=== PATIENT | male | born 1975 | race Caucasian/White ===

== ENCOUNTER 2023-09-27 01:08 | Emergency (ER) | payer BC, SELFPAY ==
[2023-09-27 01:17] VITALS: BP 167/115; BMI 30.8
--- NOTE | 2023-09-27 01:23 | ED.GENMED ---
History of Present Illness
<FADY Garcia - Last Filed: 09/27/23 05:31>
General
Chief Complaint: Abdominal Pain
Time Seen by Provider: 09/27/23 01:20
Travel History
Have you had any contact with someone who has COVID-19?: No
Do you have any symptoms of coronavirus? Fever > 100 degrees, chills, cough, shortness of breath, sore throat, loss of taste or smell, muscle aches, or headache?: No
History of Present Illness
History of Present Illness:
This is a 48 yo male with no significant PMH presenting for abdominal pain x 3 days. He states this pain started at work and had a gradual onset. He describes this as a crampy abdominal pain in the RUQ which sometimes radiates to his lumbar region.
He states the pain is worse at night and rates it as 8/10 in severity. This is associated with night sweats and nausea which is worse at night. He came to the ER today because he woke up with severe nausea and sweating along with his abdominal pain.
His last BM was yesterday and he denies diarrhea and constipation.
He denies recent trauma
He states appendicitis in 2008.
<Rogerio Arnold MD - Last Filed: 09/27/23 22:16>
General
Source: patient and spouse
Exam Limitations: none
Nursing documentation reviewed up to this point in time: agreed with
Past History
<FADY Garcia - Last Filed: 09/27/23 05:31>
Past History
ED Past Medical History: Other (Seasonal allergies)
Social History
Tobacco: Non-smoker
Alcohol: Occasional
Family History
Family History: Negative Diabetes, Hypertension or CAD
Review of Systems
<FADY Garcia - Last Filed: 09/27/23 05:31>
Review of Systems
Allergies reviewed?: Yes
Constitutional: Reports night sweats
Respiratory: Reports no symptoms
Cardiac: Reports no symptoms
ABD/GI: Reports nausea, pain and other (retching)
: Reports no symptoms
Phy Exam
<FADY Garcia - Last Filed: 09/27/23 05:31>
General Physical Exam
General Presentation: mild distress
General age: appears stated age
General Skin: warm
General Habitus: normal
General Mental: alert
General Hydration: appears well hydrated
Cardiovascular Exam
Cardiovascular Exam: regular rate/rhythm
Pulmonary Exam
Pulmonary Exam: lungs clear
Gastrointestinal Exam
Gastrointestinal Exam: normal bowel sounds, non tender, soft and non distended
Palpation: generalized: No tenderness
Course
<ST RadhaMO - Last Filed: 09/27/23 05:31>
Orders/Labs/Results
Orders:
Orders
09/27/23 01:56
CMP [Comprehensive Metabolic Panel] Urgent
Complete Blood Count/With Diff Urgent
Lipase Urgent
Comment: ADD ON
09/27/23 02:41
US Abdomen Complete/Upper Urgent
Comment:
Reason For Exam: abdominal pain
09/27/23 02:51
Urinalysis Reflex To Culture Urgent
Date Specimen was Collected: 09/27/23
Time Specimen was Collected: 02:49
Urine Microscopic Reflex Cult Urgent
09/27/23 02:53
HYDROmorphone [Dilaudid] 0.5 mg .ROUTE .STK-MED ONE
09/27/23 03:00
0.9% Sodium Chloride 1000 ml [Nss] 1,000 ml IV BOLUS
09/27/23 03:01
HYDROmorphone [Dilaudid] 0.5 mg IV NOW STA
Abnormal Lab Results
09/27/23 09/27/23
01:56 02:51
Lymphocytes % 17.6 L %
(20.5-51.1)
Glucose 123 H mg/dl
(70-99)
Leukocyte Esterase Rfl Trace A
(Negative)
Urine Bacteria (Reflex) Few A
(Negative)
09/27/23 01:56
09/27/23 01:56
Vital Signs
Initial and Last Documented VS:
Initial Vital Signs
Temp Pulse Resp BP Pulse Ox
98.1 F 66 16 167/115 99
09/27/23 01:17 09/27/23 01:17 09/27/23 01:17 09/27/23 01:17 09/27/23 01:17
Last Documented Vital Signs
Temp Pulse Resp BP Pulse Ox
97.2 F 64 16 150/91 98
09/27/23 05:21 09/27/23 05:21 09/27/23 05:21 09/27/23 05:21 09/27/23 05:21
<Rogerio Arnold MD - Last Filed: 09/27/23 22:16>
Orders/Labs/Results
Orders:
Orders
09/27/23 01:56
CMP [Comprehensive Metabolic Panel] Urgent
Complete Blood Count/With Diff Urgent
Lipase Urgent
Comment: ADD ON
09/27/23 02:41
US Abdomen Complete/Upper Urgent
Comment:
Reason For Exam: abdominal pain
09/27/23 02:51
Urinalysis Reflex To Culture Urgent
Date Specimen was Collected: 09/27/23
Time Specimen was Collected: 02:49
Urine Microscopic Reflex Cult Urgent
09/27/23 02:53
HYDROmorphone [Dilaudid] 0.5 mg .ROUTE .STK-MED ONE
09/27/23 03:00
0.9% Sodium Chloride 1000 ml [Nss] 1,000 ml IV BOLUS
09/27/23 03:01
HYDROmorphone [Dilaudid] 0.5 mg IV NOW STA
Abnormal Lab Results
09/27/23 09/27/23
01:56 02:51
Lymphocytes % 17.6 L %
(20.5-51.1)
Glucose 123 H mg/dl
(70-99)
Leukocyte Esterase Rfl Trace A
(Negative)
Urine Bacteria (Reflex) Few A
(Negative)
09/27/23 01:56
09/27/23 01:56
Vital Signs
Initial and Last Documented VS:
Initial Vital Signs
Temp Pulse Resp BP Pulse Ox
98.1 F 66 16 167/115 99
09/27/23 01:17 09/27/23 01:17 09/27/23 01:17 09/27/23 01:17 09/27/23 01:17
Last Documented Vital Signs
Temp Pulse Resp BP Pulse Ox
97.2 F 64 16 150/91 98
09/27/23 05:21 09/27/23 05:21 09/27/23 05:21 09/27/23 05:21 09/27/23 05:21
<FADY Garcia - Last Filed: 09/27/23 05:31>
MDM/Problems Addressed
Differential Diagnosis Includes:
Cholecystitis
Cholelithiasis
Pancreatitis
Duodenal ulcer
<FADY Garcia - Last Filed: 09/27/23 05:31>
*Critical Care Note
Total Time (30-74mins, 75-104mins- exclusive of procedures): Not Applicable
<FADY Garcia - Last Filed: 09/27/23 05:31>
Update Note
Update Note:
0452: patient states pain has improved significantly after Dilaudid
ED Attending Note
<FADY Garcia - Last Filed: 09/27/23 05:31>
-
Portions of this chart may have been created with voice recognition software.� Occasional wrong word or��sound alike� substitutions may have occurred due to the inherent limitations of voice recognition software.
<Rogerio Arnold MD - Last Filed: 09/27/23 22:16>
ED Attending Note
Patient seen and examined by attending physician: Yes
ED Attending Note:
Patient presents to ED secondary to intermittent right-sided abdominal pain with nausea sensation over the past 3 days. Denies fever or chills. Abdominal pain described as sharp, nonradiating, worse with meals, without any alleviating factors.
Denies trauma. Denies back pain. Denies difficulty with urination. Denies recent change in medications or diet. Denies sick contact. Denies previous history of similar symptoms. Denies family history of gallstones or kidney stones.
Physical Exam
General: mild painful distress, not acutely ill. afebrile.
Head: nc/at. eomi
Neck: supple. no meningeal signs.
Heart: s1/s2 regular rate and rhythm, no murmur. equal radial pulses.
Lungs: no acute respiratory distress. clear bilaterally
Abdomen: normal bowel sounds. no distention. mild RUQ/epigastric tenderness to palpation. no CVAT
Neuro: alert and oriented. no focal neurological deficits
Skin: no rash
Psychiatric: well kept. interactive and cooperative
Extremities: no edema. no calf tenderness.
History and exam concerning for renal colic versus biliary colic. Will obtain abdominal ultrasound and reassess.
US report reviewed and discussed with the patient and family. Advised to f/u with pmd/GI for re-evaluation, or return to ED with worsening symptoms. In the meantime, recommended diet modification, PPI, along with carafate.
Repeat abd exam: soft and nontender.
Discharge Plan
Departure
Patient Disposition: Home (Routine Discharge)
Date of Disposition: 09/27/23
Time of Disposition: 05:06
Patient with high blood pressure during this ER visit?: Yes
Discharge Problem:
Abdominal pain
Instructions: [place] Diet, Gastritis (DC), Abdominal Pain
Prescriptions:
New
sucralfate [Carafate] 100 mg/mL suspension
10 ml PO ACHS Qty: 400 0RF
No Action
prednisone 20 MG tablet
40 mg PO DAILY Qty: 10 0RF
Referrals:
PRIVATE,PHYSICIAN [Family Provider] -
Diamante Trinh MD [Active] -
Activity Restrictions/Additional Instructions:
As discussed, please follow-up with your primary care physician and/or referred to GI physician for further evaluation and treatment. Your prescription has been sent electronically to [facility] pharmacy in [place]. In addition to prescribed
medication, please take [id number] acid reducing medication, i.e. Protonix/Nexium/Prilosec.
Interventions
Interventions:
*Risk Screen - Suicide Last Done: 09/27/23 01:17
*General Assessment Last Done: 09/27/23 01:46
*Neglect/Abuse Screening Last Done: 09/27/23 01:17
ED- Fall Risk Assessment Last Done: 09/27/23 01:17
*ED COVID-19 Vaccine History Last Done: 09/27/23 01:47
*Nursing Disposition Last Done: 09/27/23 05:21
PK-Bgxvgb-Agqmuaplha Assessment Last Done: 09/27/23 01:44
Discharge Date and Time
Print Language: HUNGARIAN
[2023-09-27 01:43] VITALS: BP 149/93
[2023-09-27 02:00] VITALS: BP 142/96
[2023-09-27 02:01] LABS: % Basophils 0.6 % (0-2); % Eosinophils 1.6 % (0-6); % Immature Granulocytes 0.3 % (0-0.5); % Lymphocytes 17.6 % (20.5-51.1); % Neutrophils 72.9 % (42.2-75.2); Absolute Basophils 0.1 10^3/uL (0-0.2); Absolute Eosinophils 0.1 10^3/uL (0-0.7); Absolute Lymphocytes 1.5 10^3/uL (1.2-3.4); Absolute Monocytes 0.6 10^3/uL (0.1-0.6); Absolute Neutrophils 6.4 10^3/uL (1.4-6.5); Hematocrit 42.7 % (39.0-52.0); Hemoglobin 15.7 g/dL (13.0-18.0); Mean Corp Hgb Conc. 36.8 g/dL (33.0-37.0); Mean Corpuscular Hgb 30.4 pg (27.0-31.0); Mean Corpuscular Volume 82.8 fL (80.0-94.0); Nucleated Red Blood Cells % 0 % (-); Platelet Count 244 10^3/uL (130-400); Red Blood Cell Count 5.16 10^6/uL (4.70-6.10); Red Cell Dist. Width 12.2 % (11.5-14.5); White Blood Cell Count 8.8 10^3/uL (4.8-10.8)
[2023-09-27 02:28] LABS: ALT (SGPT) 25 U/L (0-50); AST (SGOT) 27 U/L (17-59); Albumin 4.5 g/dl (3.5-5.0); Alkaline Phosphatase 93 U/L (38-126); Blood Urea Nitrogen 13 mg/dl (9-20); Carbon Dioxide 26 mmol/L (22-30); Chloride 100 mmol/L (98-107); Estimated Creatinine Clearance > 125 ml/min; Glucose 123 mg/dl (70-99); Potassium 4.3 mmol/L (3.5-5.1); Sodium 135 mmol/L (135-145); Total Bilirubin 0.8 mg/dl (0.2-1.3); Total Protein 7.8 g/dl (6.3-8.2); eGFR > 60.00
[2023-09-27 03:00] VITALS: BP 152/96
[2023-09-27 03:00] LABS: Urine Albumin Negative (Neg - Trace); Urine Bilirubin Negative (Negative); Urine Character Clear (Clear); Urine Color Yellow; Urine Glucose Negative (Negative); Urine Ketone Negative (Negative); Urine Leukocyte Trace (Negative); Urine Nitrite Negative (Negative); Urine Occult Blood Negative (Negative); Urine Urobilinogen Negative (Neg - 1+)
[2023-09-27] MEDS: NSS 1000 IV (03:00)
[2023-09-27] MEDS: DILAUDID 0.5 MG IV (03:01)
[2023-09-27 03:08] LABS: Urine Bacteria Few (Negative); Urine Red Blood Cell 0-2 /HPF (0-2); Urine Squamous Cell 0-2 /LPF (Few); Urine White Cell 0-2 /HPF (0-5)
[2023-09-27 03:20] LABS: Lipase 46 U/L (23-300)
[2023-09-27 05:00] VITALS: BP 150/91
[2023-09-27 05:21] VITALS: BP 150/91
== END 2023-09-27 05:21 | disposition home or self-care (01) ==
LOC: EMR 01:08
PROVIDERS: EMERGENCY PHYSICIAN Emergency Medicine
DX: R10.11 Right upper quadrant pain (principal); R11.0 Nausea; M54.50 Low back pain, unspecified; R61 Generalized hyperhidrosis; R03.0 Elevated blood-pressure reading, without diagnosis of hypertension
CPT/HCPCS: 99284; 96374; 96361; 76700; 80053; 81003; 81015; 83690; 85025

== ENCOUNTER → 2024-03-30 06:28 | Day surgery (SDC) | payer BC, SELFPAY | LOC: GI 06:28 | PROVIDERS: ATTENDING PHYSICIAN Internal Medicine | PROC: 0DBN8ZX Excision of Sigmoid Colon, Via Natural or Artificial Opening Endoscopic, Diagnostic (ICD-10-PCS; 2024-03-30) | PROC: 0DBK8ZX Excision of Ascending Colon, Via Natural or Artificial Opening Endoscopic, Diagnostic (ICD-10-PCS; 2024-03-30) | PROC: 0DBP8ZX Excision of Rectum, Via Natural or Artificial Opening Endoscopic, Diagnostic (ICD-10-PCS; 2024-03-30) | DX: Z12.11 Encounter for screening for malignant neoplasm of colon (principal); D12.2 Benign neoplasm of ascending colon; D12.5 Benign neoplasm of sigmoid colon; D12.8 Benign neoplasm of rectum; K57.30 Diverticulosis of large intestine without perforation or abscess without bleeding; K64.8 Other hemorrhoids; K55.20 Angiodysplasia of colon without hemorrhage | CPT/HCPCS: 45385; 45380; 88305 ==